=== PATIENT | female | born 1945 | race Caucasian/White ===

== ENCOUNTER → 2017-04-19 | Outpatient (CLI) | payer MEDICARE, OTHER ==
[~2017-04-19] MED LIST: COL625PT PO; DUL20 PO; ESCI20TA38 PO; FERR236T3 PO; LISI5TAB25 PO; PRAM1TAB22 PO; RIV10 PO; RIVA20TA PO; SPIR25TA78 PO
--- NOTE | 2017-04-20 15:39 | RADIOLOGY IMAGING REPORT ---
[place] [facility] [place] NAME: FORTINO LEIGH : [id number] MR: [id number] V: [id number] EXAM DATE: [id number] ORDERING PHYSICIAN: RADHA MAGUIRE TECHNOLOGIST: Melissa Engel PROCEDURE:BILATERAL DIGITAL SCREENING MAMMOGRAM WITH CAD ASSISTED INTERPRETATION AND 3D BREAST TOMOSYNTHESIS. COMPARISON:Prior mammograms dated 03/24/16, 03/11/16, 01/03/15, 11/13/13, 03/24/12 and 12/18/10. INDICATIONS:SCREENING FINDINGS: A small amount of fibroglandular tissue is seen throughout the breasts. The parenchymal pattern has remained stable when allowing for difference in mammographic technique and patient positioning. There is no evidence of malignant appearing mass, malignant appearing calcification or other secondary sign of malignancy in either breast. DIAGNOSTIC CATEGORY 1--NEGATIVE. RECOMMENDATIONS: ROUTINE MAMMOGRAM AND CLINICAL EVALUATION. IMPRESSION: Bi-RADS 1: No significant abnormality is seen. Images were reviewed with R2CAD and 3D breast tomosynthesis. Dictated by: Kelly Ford M.D. on 04/19/2017 at 15:53 Transcribed by: CLAUDIO on 04/19/2017 at 20:09 Approved by: Kelly Ford M.D. on 04/20/2017 at 15:38 [facility]
== END ==
LOC: MAMO 01:53
PROVIDERS: ATTEND Nurse Practitioner Family
DX: Z12.31 Encounter for screening mammogram for malignant neoplasm of breast (principal)
CPT/HCPCS: 77063; 77067

== ENCOUNTER → 2017-08-11 | Outpatient (CLI) | payer MEDICARE, OTHER ==
--- NOTE | 2017-08-11 15:15 | RADIOLOGY IMAGING REPORT ---
FAC[place] [facility] [place]IENT NAME: Young Castrejon : 1945 MR: [id number] V: [id number] EXAM DATE: ORDERING PHYSICIAN: KASSIE SAUNDERS TECHNOLOGIST: Location: [facility] Patient: Young Castrejon : 1945 Visit/Account:[id number] Date of Sevice: 08/11/2017 EXAMINATION: L-SPINE W/O CONTRAST Indication: Low back pain, history of fusion. COMPARISON: None. TECHNIQUE: Axial images were obtained through the lumbar spine without IV contrast administration. C oronal and sagittal reformatted images were obtained from the axial source data. One of the following dose optimization techniques was utilized in the performance of this exam: automated exposure contro l; adjustment of the mA and/or kV according to the patient's size; or use of an iterative reconstruct ion technique. Specific details can be referenced in the facility's radiology CT exam operational po licy. FINDINGS: Alignment: There are postoperative changes with posterior instrumentation fusion hardware at L4-5. Th ere is mild anterolisthesis L4-5, 3 mm. Vertebral bodies: Vertebral bodies and the posterior elements are intact. There is severe disc space narrowing the bony endplate sclerosis at L2-3, with subchondral cystic changes. Remaining vertebral h eights are maintained. Anterior osteophytes are seen at T12-L1, and L1-L2. Posterior elements: Negative. Soft tissues: Negative. Visualized retroperitoneal / abdominal structures: Negative. On a level by level basis findings are as follows: L1-2: Spinal canal and neural foramen are patent. L2-3: Right and left neural foramen are patent. There is mild narrowing of the central canal secondar y to posterior osteophyte. L3-4: Posterior broad-based is protrusion is seen, that causes moderate central canal stenosis. Right and left neural foramen are patent. L4-5: Mild posterior broad-based disc protrusion is seen, without significant central canal stenosis. Right and left neural foramen are patent. L5-S1: Spinal canal and neural foramen are patent. IMPRESSION: 1. Postoperative changes with posterior instrumentation and fusion hardware L4-5. 2. Mild anterolisthesis L4-5. 3. Moderate central canal stenosis L3-4, secondary to posterior broad-based disc protrusion. Report Dictated By: Rodney aPtel at 08/11/2017 3:08 PM Report E-Signed By: Rodney Patel at 08/11/2017 3:13 PM WSN:[id number]
== END ==
LOC: CT 14:15
PROVIDERS: ATTEND Orthopaedic Surgery
DX: M43.16 Spondylolisthesis, lumbar region (principal)
CPT/HCPCS: 72131

== ENCOUNTER → 2017-09-27 | Outpatient (CLI) | payer MEDICARE, OTHER ==
[~2017-09-27] MED LIST changes: -SPIR25TA78 PO; +SPIR25TA80 PO
--- NOTE | 2017-09-27 09:48 | EKG ---
[place] [facility] [place] FORTINO LEIGH : [id number] MR: [id number] V: [id number] EXAM DATE: ORDERING PHYSICIAN: RADHA MAGUIRE TECHNOLOGIST: OLINDA Varela Reason : PRE-OP Blood Pressure : / mmHG Vent. Rate : 071 BPM Atrial Rate : 071 BPM P-R Int : 146 ms QRS Dur : 082 ms QT Int : 388 ms P-R-T Axes : 064 040 037 degrees QTc Int : 421 ms Normal sinus rhythm Nonspecific T wave abnormality Abnormal ECG When compared with ECG of 12-NOV-2015 09:19, Now with lateral T flattening Confirmed by MICHELINE TYSON ([id number]) on 09/27/2017 7:17:02 PM Referred By: ANDREZ Confirmed By:MICHELINE TYSON
== END ==
LOC: RESP 09:12
PROVIDERS: ATTEND Nurse Practitioner Family
DX: R94.31 Abnormal electrocardiogram [ECG] [EKG] (principal)
CPT/HCPCS: 93005

== ENCOUNTER → 2017-11-18 | Outpatient (CLI) | payer MEDICARE, OTHER ==
--- NOTE | 2017-11-18 08:49 | RADIOLOGY IMAGING REPORT ---
FACILITY: [facility] PATIENT NAME: Young Castrejon : 1945 MR: [id number] V: [id number] EXAM DATE: ORDERING PHYSICIAN: [facility] TECHNOLOGIST: Location: [facility] Patient: Young Castrejon : 1945 Visit/Account:[id number] Date of Sevice: 11/18/2017 Exam type: VENOUS DOPP LOW LEFT EXTREMITY History: Left leg swelling Comparison: September 18, 2015. Findings: Left lower extremity veins are imaged including the left common femoral vein, greater saphenous vein, superficial femoral vein, popliteal vein, posterior tibial vein, peroneal vein and anterior tibial v ein revealing no evidence of intraluminal thrombi. The veins were compressible and demonstrated augm entation. Incidentally noted is a 2.8 x 2.8 x 1.1 cm fatty replaced left inguinal lymph node IMPRESSION: 1. No sonographic evidence DVT involving the left lower extremity veins Report Dictated By: Kelly Ford MD at 11/18/2017 8:45 AM Report E-Signed By: Kelly Ford MD at 11/18/2017 8:47 AM WSN:[id number]
== END ==
LOC: US 07:13
DX: R22.42 Localized swelling, mass and lump, left lower limb (principal)

== ENCOUNTER 2017-12-28 11:24 | Emergency (ER) | payer MEDICARE, OTHER ==
--- NOTE | 2017-12-28 11:27 | ER Report ---
History and Physical Time Seen By MD: 11:27 HPI/ROS CHIEF COMPLAINT: Chest pain HISTORY OF PRESENT ILLNESS: 72-year-old female patient presents to emergency room with complaint of chest. Patient states the pain started about 11:00 this morning. She said it lasted for several minutes. She states that as a chest pain resolved but she did have an episode of lightheadedness. Patient states she's not had any shortness of breath, no nausea or vomiting. Patient states she did take some baking soda to help with what she described as heartburn. She states that this resolved a few minutes later. Patient discussed this episode with a friend of hers who felt that she needed to come into the emergency room be evaluated. Patient states that this time she is pain-free. She denies any shortness of breath. She denies any cough, fevers, nausea, vomiting or diarrhea. REVIEW OF SYSTEMS: Respiratory: No cough, no dyspnea. Cardiovascular: As noted above Gastrointestinal: No vomiting, no abdominal pain. Musculoskeletal: No back pain. Allergies: Coded Allergies: cefaclor (Unverified Allergy, Severe, ANAPHYLAXIS, 12/28/17) codeine (Unverified Allergy, Intermediate, NAUSEA/VOMITING, 12/28/17) Home Meds Reported Medications Brian Cit/D3/K/Mag Ox/Stron/Bor (THERACAL D2000 TABLET) 1 Each Tablet, 1 EACH PO DAILY 12/28/17 Cyclobenzaprine Hcl (CYCLOBENZAPRINE HCL) 10 Mg Tablet, 10 PO PRN 12/28/17 Amitriptyline Hcl (AMITRIPTYLINE HCL) 25 Mg Tablet, 25 MG PO QHS, #5 TAB 12/28/17 Gabapentin (GABAPENTIN) 300 Mg Capsule, 300 MG PO BID, CAPSULE 12/28/17 Aspirin (ASPIR 81) 81 Mg Tablet.dr, 81 MG PO QDAY, TAB 12/28/17 Folic Acid (FOLIC ACID) 1 Mg Tablet, 1 MG PO QDAY, TAB 12/28/17 Pramipexole Di-Hcl (MIRAPEX) 1 Mg Tablet, 2 MG PO HS 05/26/14 Escitalopram Oxalate (LEXAPRO) 20 Mg Tablet, 40 MG PO QDAY 05/26/14 Lisinopril (LISINOPRIL) 5 Mg Tablet, 5 MG PO QDAY 08/09/13 Discontinued Reported Medications Colesevelam Hcl (WELCHOL) 625 Mg Tablet, 1250 MG PO TID 05/26/14 Ferrous Gluconate (IRON) 236 Mg Tablet, 236 MG PO BID 05/26/14 Rivaroxaban (XARELTO 10 MG TAB (OR EQUIV)) 10 Mg Tablet, 10 MG PO QDAY 05/26/14 Spironolactone (SPIRONOLACTONE) 25 Mg Tablet, 25 MG PO DAILY 05/26/14 Past Medical/Surgical History Patient has a past medical history of hypertension, hyperlipidemia, back pain. Patient has surgical history of dental implants, left quad detachment surgery, back surgery 2, right total hip, right total knee, appendectomy, left femoral hernia repair. Reviewed Nurses Notes: Yes Hx Smoking: Yes Smoking Status: Current: Every Day Smoker Constitutional Vital Sign - Last 24 Hours 12/28/17 12/28/17 12/28/17 12/28/17 11:24 11:30 11:30 11:54 Temp 97.7 Pulse 101 101 97 Resp 12 16 B/P (MAP) 149/84 149/84 (105) Pulse Ox 97 96 O2 Delivery Room Air Room Air 12/28/17 12/28/17 12/28/17 12/28/17 11:59 12:08 12:29 12:30 Pulse 96 87 Resp 13 9 B/P (MAP) 126/74 (91) 124/69 (87) Pulse Ox 95 94 O2 Delivery Room Air Room Air 12/28/17 12/28/17 12/28/17 12/28/17 12:35 13:00 13:05 13:30 Pulse 89 81 Resp 14 14 B/P (MAP) 110/63 (79) 101/57 (72) Pulse Ox 96 91 O2 Delivery Room Air Room Air 12/28/17 12/28/17 12/28/17 12/28/17 13:35 13:40 14:00 14:10 Pulse 76 76 76 Resp 8 11 6 B/P (MAP) 106/56 (73) Pulse Ox 95 94 96 O2 Delivery Room Air Room Air Room Air 12/28/17 12/28/17 12/28/17 12/28/17 14:15 14:20 14:25 14:30 Pulse 76 76 77 76 Resp 9 15 18 10 B/P (MAP) 112/59 (76) Pulse Ox 95 94 90 97 10/17/18 14:35 Pulse 76 Resp 18 Pulse Ox 95 Physical Exam General Appearance: The patient is alert, has no immediate need for airway protection and no current signs of toxicity. Respiratory: Chest is non tender, lungs are clear to auscultation. Cardiac: regular rate and rhythm Gastrointestinal: Abdomen is soft and non tender, no masses, bowel sounds normal. Musculoskeletal: Neck: Neck is supple and non tender. Extremities have full range of motion and are non tender. Skin: No rashes or lesions. DIFFERENTIAL DIAGNOSIS: After history and physical exam differential diagnosis was considered for chest pain including but not limited to myocardial ischemia, pericarditis pulmonary embolus, chest wall pain, pleural inflammation and pulmonary infectious causes. Medical Decision Making Data Points Result Diagram: 12/28/17 1130 12/28/17 1130 Laboratory Hematology Test 12/28/17 11:30 12/28/17 13:53 Red Blood Count 4.38 M/uL (4.17-5.56) Mean Corpuscular Volume 98.0 fL (80.0-96.0) Mean Corpuscular Hemoglobin 32.6 pg (26.0-33.0) Mean Corpuscular Hemoglobin Concent 33.2 g/dL (32.0-36.0) Red Cell Distribution Width 15.1 % (11.5-14.5) Mean Platelet Volume 7.8 fL (7.2-11.1) Neutrophils (%) (Auto) 55.8 % (39.4-72.5) Lymphocytes (%) (Auto) 31.6 % (17.6-49.6) Monocytes (%) (Auto) 9.7 % (4.1-12.4) Eosinophils (%) (Auto) 2.1 % (0.4-6.7) Basophils (%) (Auto) 0.8 % (0.3-1.4) Nucleated RBC Relative Count (auto) 0.1 /100WBC Neutrophils # (Auto) 4.1 K/uL (2.0-7.4) Lymphocytes # (Auto) 2.3 K/uL (1.3-3.6) Monocytes # (Auto) 0.7 K/uL (0.3-1.0) Eosinophils # (Auto) 0.2 K/uL (0.0-0.5) Basophils # (Auto) 0.1 K/uL (0.0-0.1) Nucleated RBC Absolute Count (auto) 0.01 K/uL Sodium Level 139 mmol/L (137-145) Potassium Level 3.8 mmol/L (3.5-5.0) Chloride Level 103 mmol/L (98-107) Carbon Dioxide Level 26 mmol/L (22-31) Blood Urea Nitrogen 16 mg/dl (7-18) Creatinine 0.80 mg/dl (0.52-1.04) Glomerular Filtration Rate Calc > 60.0 Random Glucose 115 mg/dl (75-110) Calcium Level 9.3 mg/dl (8.4-10.2) Total Bilirubin 0.3 mg/dl (0.2-1.3) Aspartate Amino Transf (AST/SGOT) 30 U/L (0-35) Alanine Aminotransferase (ALT/SGPT) 34 U/L (0-56) Alkaline Phosphatase 128 U/L (0-126) Total Protein 7.6 g/dl (6.3-8.2) Albumin 4.1 g/dl (3.5-5.0) Troponin I < 0.012 ng/ml Chemistry Test 12/28/17 11:30 12/28/17 13:53 White Blood Count 7.4 k/uL (4.5-11.0) Red Blood Count 4.38 M/uL (4.17-5.56) Hemoglobin 14.2 g/dL (12.0-16.0) Hematocrit 42.9 % (34.0-47.0) Mean Corpuscular Volume 98.0 fL (80.0-96.0) Mean Corpuscular Hemoglobin 32.6 pg (26.0-33.0) Mean Corpuscular Hemoglobin Concent 33.2 g/dL (32.0-36.0) Red Cell Distribution Width 15.1 % (11.5-14.5) Platelet Count 239 K/uL (150-450) Mean Platelet Volume 7.8 fL (7.2-11.1) Neutrophils (%) (Auto) 55.8 % (39.4-72.5) Lymphocytes (%) (Auto) 31.6 % (17.6-49.6) Monocytes (%) (Auto) 9.7 % (4.1-12.4) Eosinophils (%) (Auto) 2.1 % (0.4-6.7) Basophils (%) (Auto) 0.8 % (0.3-1.4) Nucleated RBC Relative Count (auto) 0.1 /100WBC Neutrophils # (Auto) 4.1 K/uL (2.0-7.4) Lymphocytes # (Auto) 2.3 K/uL (1.3-3.6) Monocytes # (Auto) 0.7 K/uL (0.3-1.0) Eosinophils # (Auto) 0.2 K/uL (0.0-0.5) Basophils # (Auto) 0.1 K/uL (0.0-0.1) Nucleated RBC Absolute Count (auto) 0.01 K/uL Glomerular Filtration Rate Calc > 60.0 Calcium Level 9.3 mg/dl (8.4-10.2) Total Bilirubin 0.3 mg/dl (0.2-1.3) Aspartate Amino Transf (AST/SGOT) 30 U/L (0-35) Alanine Aminotransferase (ALT/SGPT) 34 U/L (0-56) Alkaline Phosphatase 128 U/L (0-126) Total Protein 7.6 g/dl (6.3-8.2) Albumin 4.1 g/dl (3.5-5.0) Troponin I < 0.012 ng/ml EKG/Imaging EKG Interpretation 12 lead EKG: Rhythm: normal sinus rhythm Maybell: normal QRS: normal ST segments: Nonspecific ST abnormality Imaging CHEST PA AND LAT History: Chest Pain FINDINGS: Comparison studies: Comparison lumbar spine 01/19/2011. No prior chest radiographs. Tubes and Lines: None. Lungs and pleura: Small calcified granuloma seen at the right costophrenic angle. There is very mild bilateral upper lung cephalization. No focal consolidation. Mediastinum: Several right-sided calcified Hilar lymph nodes noted. Otherwise unremarkable. Cardiac silhouette: normal . Osseous structures: On the lateral view there is rather extensive sclerosis of the T10-T11 endplates and [id number] abutment at the T10-11 disc and to a lesser extent at T11-12. This represents a change from the remote 2011 lumbar spine radiographs. IMPRESSION: Subtle upper lung cephalization which could represent very mild fluid overload mild underlying scarring. No focal consolidation. 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 Bone sclerosis presumptively reactive to the disc disease. Evidence of Previous granulomatous disease Report Dictated By: Matt Black MD at 12/28/2017 12:27 PM Report E-Signed By: Matt Black MD at 12/28/2017 12:34 PM ED Course/Re-evaluation ED Course Patient is admitted and examined, history and physical were obtained. Differential diagnoses were considered. On examination lungs are clear, heart is regular, abdomen soft nontender. Patient on areas having any chest pain. A CBC, CMP, troponin, EKG, chest x-ray were done. EKG showed normal sinus rhythm, CBC, CMP were unremarkable. Troponin was negative. Chest x-ray showed no acute cardiopulmonary processes. Due to her age and onset of pain being 11 o'clock I did want to do a repeat troponin. That was done approximately 2:00. That was also negative. I discussed findings with patient. We'll go ahead and discharge her home at this time. She is to continue with her normal diet. She is to increase fluid intake. I would like her to follow-up with primary care provider in the next week. Patient verbalized understanding and agreement with plan. Decision to Disposition Date: Dec 28, 2017 Decision to Disposition Time: 14:34 Depart Departure Latest Vital Signs Vital Signs Date Time Temp Pulse Resp B/P (MAP) Pulse Ox O2 Delivery O2 Flow Rate FiO2 12/28/17 14:35 76 18 95 12/28/17 14:30 112/59 (76) 12/28/17 14:10 Room Air 12/28/17 11:30 97.7 Impression: Primary Impression: Chest pain Condition: Improved Disposition: HOME OR SELF-CARE Referrals: RADHA MAGUIRE (PCP) Patient Instructions: Chest Pain (ED) Additional Instructions: Increase fluid intake. Get plenty of rest. Follow up with your primary care provider in the next 2-3 days. Return to the ER if condition worsens. Continue with your current medications. Problem Qualifiers Primary Impression: Chest pain Chest pain type: other chest pain Qualified Codes: R07.89 - Other chest pain EMILE HERNANDEZ Dec 28, 2017 11:27
[2017-12-28] MEDS ORDERED: ASPI-1471 PO (11:40)
[2017-12-28] MEDS ORDERED: CYCL10TA29 PO (11:40)
[2017-12-28] MEDS ORDERED: FOLI-68 PO (11:40)
[2017-12-28] MEDS ORDERED: CAL1TABL PO (11:40)
[2017-12-28] MEDS ORDERED: GABA-549 PO (11:40)
[2017-12-28] MEDS ORDERED: AMIT-106 PO (11:40)
[2017-12-28] MEDS ORDERED: ASPIRIN 81 MG CHEW PO ONE (11:50)
[2017-12-28 11:55] LABS: PLATELET COUNT, AUTOMATED 239 K/uL (150-450)
--- NOTE | 2017-12-28 11:59 | EKG ---
FACILITY: [facility] - [place] PATIENT NAME: FORTINO LEIGH : [id number] MR: [id number] V: [id number] EXAM DATE: ORDERING PHYSICIAN: EMILE HERNANDEZ TECHNOLOGIST: JANIS Test Reason : CP Blood Pressure : / mmHG Vent. Rate : 099 BPM Atrial Rate : 099 BPM P-R Int : 144 ms QRS Dur : 080 ms QT Int : 346 ms P-R-T Axes : 042 007 004 degrees QTc Int : 444 ms Normal sinus rhythm Cannot rule out Anterior infarct , age undetermined Diffuse, non-specific, T flattening When compared with ECG of 27-SEP-2017 09:30, Nonspecific T wave abnormality now evident in Inferior leads Confirmed by MICHELINE TYSON ([id number]) on 12/28/2017 6:54:54 PM Referred By: ROBBY Confirmed By:MICHELINE TYSON
--- NOTE | 2017-12-28 12:37 | RADIOLOGY IMAGING REPORT ---
FACILITY: [facility] PATIENT NAME: Young Castrejon : 1945 MR: [id number] V: [id number] EXAM DATE: ORDERING PHYSICIAN: EMILE HERNANDEZ TECHNOLOGIST: Location: [facility] [place] Patient: Young Castrejon : 1945 Visit/Account:[id number] Date of Sevice: 12/28/2017 CHEST PA AND LAT History: Chest Pain FINDINGS: Comparison studies: Comparison lumbar spine 01/19/2011. No prior chest radiographs. Tubes and Lines: None. Lungs and pleura: Small calcified granuloma seen at the right costophrenic angle. There is very mi ld bilateral upper lung cephalization. No focal consolidation. Mediastinum: Several right-sided calcified Hilar lymph nodes noted. Otherwise unremarkable. Cardiac silhouette: normal . Osseous structures: On the lateral view there is rather extensive sclerosis of the T10-T11 endplate s and [id number] abutment at the T10-11 disc and to a lesser extent at T11-12. This represents a c hange from the remote 2010 lumbar spine radiographs. IMPRESSION: Subtle upper lung cephalization which could represent very mild fluid overload mild underlying scar ring. No focal consolidation. 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 Bone sclerosis presumptively re active to the disc disease. Evidence of Previous granulomatous disease Report Dictated By: Matt Black MD at 12/28/2017 12:27 PM Report E-Signed By: Matt Black MD at 12/28/2017 12:34 PM WSN:[id number]
[2017-12-28 14:30] VITALS: BP 112/59
== END 2017-12-28 14:42 | disposition home or self-care (01) ==
LOC: ER 11:27
DX: R07.89 Other chest pain (principal)
CPT/HCPCS: 36415; 71046; 84484; 85025; 93005; 99283; A9270; 82040; 82247; 82310; 82374; 82435; 82565; 82947; 84075; 84132; 84155; 84295; 84450; 84460; 84520

== ENCOUNTER → 2018-01-17 | Outpatient (CLI) | payer MEDICARE, OTHER ==
[~2018-01-17] MED LIST changes: +AMIT-106 PO; +ASPI-1471 PO; +CAL1TABL PO; +CYCL10TA29 PO; +FOLI-68 PO; +GABA-549 PO
--- NOTE | 2018-01-17 10:54 | RADIOLOGY IMAGING REPORT ---
FACILITY: [facility] PATIENT NAME: Young Castrejon : 1945 MR: [id number] V: [id number] EXAM DATE: ORDERING PHYSICIAN: SIENA BARRIOS TECHNOLOGIST: Location: [facility] - [place] Patient: Young Castrejon : 1945 Visit/Account:[id number] Date of Sevice: 01/17/2018 LUMBAR SPINE 4 VIEWS COMPARISON: 08/11/2017 CT lumbar spine without contrast. HISTORY: Postoperative lumbar fusion/spondy 15 weeks TECHNIQUE: Lumbar spine radiographs (4 views including AP, lateral, lateral flexion and lateral exte nsion views) FINDINGS: ALIGNMENT: Moderate dextroscoliosis, apex L2-L3. Previously there was a slight leftward curvature. There is a first/borderline second-degree retrolisthesis of about 1.1 cm at L1-2 showing no significa nt change with flexion although this actually improves to about 7 mm with extension. First-degree retrolisthesis of 6 mm at L2-3 showing no change with flexion or extension. First-degree anterolisthesis of 5 mm at L4-5 increases to 9 mm with flexion and extension. Please note that plain film measurements are approximate. VERTEBRAL BODIES: Intact vertebral body heights without fracture or osseous lesion. There are fiv e lumbar vertebral bodies and there are posterior stabilization rods and transpedicular screws at L2, L3 and L4 representing a change from previous. L4-5 hardware has been removed. There is moderate endplate spurring, endplate irregularity and sclerosis at L2-3 which is relatively stable. DISC SPACES: Prosthetic disc or fusion device at L2-3. Moderate L1-2, advanced L2-3 and mild L4-5 a nd L5-S1 disc height loss. SACROILIAC JOINTS: Unremarkable. OTHER: Negative. IMPRESSION: 1. Interval lumbar spine hardware revision. There has been removal of L4-5 posterior spinal fusion hardware. There is new posterior spinal fusion hardware between L2 and L4 and there is new hardware in the L2-3 disc space. No hardware-related complications are evident. 2. Subluxations at L1-2, L2-3 and L4-5 as described, with motion suggesting instability at L1-2 and L4-5. Plain film measurements are approximate. 3. Moderate lumbar spine degenerative changes. 4. Moderate dextroscoliosis which is new from the preoperative study. Report Dictated By: Ruddy Forrest at 01/17/2018 10:40 AM Report E-Signed By: Ruddy Forrest at 01/17/2018 10:50 AM JULIANN:FLOR
== END ==
LOC: RAD 09:58
DX: Z48.811 Encounter for surgical aftercare following surgery on the nervous system (principal)
CPT/HCPCS: 72120

== ENCOUNTER → 2018-06-09 | Outpatient (CLI) | payer MEDICARE, OTHER ==
[~2018-06-09] MED LIST changes: +BUPR-126 PO; +PSYL1000 MC
--- NOTE | 2018-06-09 12:24 | RADIOLOGY IMAGING REPORT ---
FACILITY: [facility] - [place] PATIENT NAME: FORTINO LEIGH : [id number] MR: [id number] V: [id number] EXAM DATE: [id number] ORDERING PHYSICIAN: RADHA MAGUIRE TECHNOLOGIST: Fannie Chapman PROCEDURE:BILATERAL DIGITAL SCREENING MAMMOGRAM WITH CAD ASSISTED INTERPRETATION & 3D TOMOSYNTHESIS COMPARISON:Prior mammograms 04/19/2017, prior to 12/18/2010. INDICATIONS:SCREENING FINDINGS: Breast parenchyma density is predominantly fatty. There are no mammographic findings concerning for malignancy. No significant interval change. DIAGNOSTIC CATEGORY 1--NEGATIVE. RECOMMENDATIONS: ROUTINE MAMMOGRAM AND CLINICAL EVALUATION IN 1 YR. IMPRESSION: BIRADS 1: Negative. Dictated by: Rodney Carroll on 06/09/2018 at 11:18 Transcribed by: BLACK on 06/09/2018 at 11:32 Approved by: Rodney Carroll on 06/09/2018 at 12:23 [facility]
== END ==
LOC: MAMO 02:02
PROVIDERS: ATTEND Nurse Practitioner Family
DX: Z12.31 Encounter for screening mammogram for malignant neoplasm of breast (principal)
CPT/HCPCS: 77063; 77067

== ENCOUNTER 2018-10-20 10:51 | Emergency (ER) | payer MEDICARE, OTHER ==
[2018-10-20] MEDS ORDERED: EZET10TA41 PO (11:01)
--- NOTE | 2018-10-20 11:01 | ER Report ---
History and Physical Time Seen By MD: 10:57 HPI/ROS CHIEF COMPLAINT: Left Hip pain HISTORY OF PRESENT ILLNESS: Pt is a 73 yo F c/o left hip pain that started this morning after doing PT. She was abducting her hip when she heard a pop/grinding sound that now is causing pain in the medial groin. The pain is worse with movement but only a 4/10. Hasn't tried anything for the pain. Is non-weight bearing on the left, needed a walker to get into ED room today. History of right hip arthroplasty in 2015, left knee arthroplasty in 2016, left quadraceps surgery in 2016 and L4-L5 fusion in 2017. REVIEW OF SYSTEMS: Respiratory: no cough, no dyspnea Cardiovascular: No chest pain, no palpitations. Gastrointestinal: no abdominal pain Musculoskeletal: No back pain, left hip pain, left groin pain, non weight bearing Allergies: Coded Allergies: cefaclor (Unverified Allergy, Severe, ANAPHYLAXIS, 10/20/18) codeine (Unverified Allergy, Intermediate, NAUSEA/VOMITING, 10/20/18) Home Meds Active Scripts Oxycodone Hcl/Acetaminophen (PERCOCET 5-325 MG TABLET) 1 Each Tablet, 1 EACH PO Q4-6H PRN for PAIN, #6 TAB Prov:EMILE HERNANDEZ [employer] 10/20/18 Reported Medications Ezetimibe (ZETIA) 10 Mg Tablet, 10 MG PO QDAY, TAB 10/20/18 Psyllium Husk (PSYLLIUM HUSK) 1,000 Gm Powder, 1450 MG MC 02/24/18 Bupropion Hcl (WELLBUTRIN SR) 150 Mg Tablet.er, 150 MG PO QDAY, TAB 02/24/18 Spironolactone (SPIRONOLACTONE) 25 Mg Tablet, 25 MG PO PRN, TAB 02/24/18 Brian Cit/D3/K/Mag Ox/Stron/Bor (THERACAL D2000 TABLET) 1 Each Tablet, 1 EACH PO DAILY 12/28/17 Folic Acid (FOLIC ACID) 1 Mg Tablet, 1 MG PO QDAY, TAB 12/28/17 Escitalopram Oxalate (LEXAPRO) 20 Mg Tablet, 20 MG PO QDAY 05/26/14 Lisinopril (LISINOPRIL) 5 Mg Tablet, 5 MG PO QDAY 08/09/13 Discontinued Reported Medications Cyclobenzaprine Hcl (CYCLOBENZAPRINE HCL) 10 Mg Tablet, 10 MG PO BID, #9 TAB 02/24/18 Past Medical/Surgical History HTN, Hypercholesterolemia, back pain, denal implatations, glasses, hernia repair, appendectomy, left knee replacement, right hip replacement, L4-5 fusion, left quad detachment surgery Reviewed Nurses Notes: Yes Hx Smoking: Yes Smoking Status: Current: Every Day Smoker Hx Substance Use Disorder: No Hx Alcohol Use: No Constitutional Vital Sign - Last 24 Hours 10/20/18 10/20/18 10/20/18 10/20/18 11:00 11:03 11:30 12:00 Temp 97.2 Pulse 74 84 65 Resp 20 B/P (MAP) 133/66 (88) 148/72 106/58 (74) Pulse Ox 94 93 94 92 O2 Delivery Room Air Physical Exam General Appearance: The patient is alert, has no immediate need for airway protection and no current signs of toxicity. Eyes: Pupils equal and round no injection, EOMI Respiratory: Chest is non tender, lungs are clear to auscultation. Cardiac: regular rate and rhythm Gastrointestinal: Abdomen is soft and non tender, no masses, bowel sounds normal. Musculoskeletal: Neck: Neck is supple and non tender FROM in right lower extremity, limited ROM in left hip to about 10 degrees in any direction, non weight-bearing, no TTP of the ASIS or greater trochanter, FROM in spine with acception of L4-L5 fusion Skin: No rashes or lesions. DIFFERENTIAL DIAGNOSIS: After history and physical exam differential diagnosis was considered for dislocation, nerve impingment, fracture, strain, muscle tear Medical Decision Making EKG/Imaging Imaging Exam type: HIP LEFT History: left hip pian Comparison: Right hip November 13, 2013. Findings: Two views were submitted There is a right hip arthroplasty in place. Postsurgical changes lower lumbar spine are incompletely imaged. There is mild narrowing of the left hip joint slightly increased when compared the prior study. There is no evidence of acute fracture or dislocation. There are mild generative changes at the pubic symphysis. IMPRESSION: 1. Slight narrowing of the left hip joint increased when compared to the prior study from November 13, 2013 Report Dictated By: Kelly Ford MD at 10/20/2018 12:11 PM Report E-Signed By: Kelly Ford MD at 10/20/2018 12:13 PM WSN:FLOR Exam type: L-SPINE >4 VIEWS History: left hip pian radiating into lower back Comparison: January 17, 2018. Findings: Five views of the lumbar spine were submitted. There is a dextroconvex scoliosis of the lumbar spine There are five lumbar type vertebral bodies. There are postsurgical changes from posterior lumbar interbody fusion at L2-3 and four. Intervertebral disc spacers present at L3-4 grade 1 anterior listhesis of L4 with respect L5 appears similar to the prior study. Previously noted retrolisthesis of L1 with respect L2 appears less prominent. There is however increasing moderate to severe disc space narrowing at L1-2 with gas noted within the disc space and sclerosis of the adjacent endplates. IMPRESSION: 1. Postoperative changes of the lumbar spine from L2 to L4 as described above. Extensive multilevel spondylotic changes as described Report Dictated By: Kelly Ford MD at 10/20/2018 12:07 PM Report E-Signed By: Kelly Ford MD at 10/20/2018 12:11 PM WSN:FLOR ED Course/Re-evaluation ED Course Patient was admitted when examined, history and physical were obtained. Differential diagnoses were considered. On examination lungs were clear, heart is regular, abdomen soft nontender. Patient did have tenderness over the lateral aspect of the left hip. X-rays done of the left hip as well as lumbar spine. There are no acute findings noted. Discussed findings with the patient. We will go ahead and discharge her home with a limited supply of pain medication. Patient is follow-up with her orthopedist in the next week. I discussed concerns about possible injury to the muscle of the hip and will need follow-up with orthopedics patient heals properly. Patient is return to emergency room if condition worsens. Patient verbalized understanding and agreement with plan. Decision to Disposition Date: Oct 20, 2018 Decision to Disposition Time: 12:29 Depart Departure Latest Vital Signs Vital Signs Date Time Temp Pulse Resp B/P (MAP) Pulse Ox O2 Delivery O2 Flow Rate FiO2 10/20/18 12:00 65 106/58 (74) 92 10/20/18 11:03 97.2 20 Room Air Impression: Primary Impression: Left hip pain Condition: Improved Disposition: HOME OR SELF-CARE New Scripts Oxycodone Hcl/Acetaminophen (PERCOCET 5-325 MG TABLET) 1 Each Tablet 1 EACH PO Q4-6H PRN for PAIN, #6 TAB Prov: EMILE HERNANDZE 10/20/18 Patient Instructions: Hip Pain (ED) Additional Instructions: Rest, ice and use walker until able to follow up with orthopedics next week. Rx for Percocet given PRN for pain. Do not drive or operate heavy machinery when taking Narcotics. Return to ED if pain suddenly worsens. EMILE HERNANDEZ Oct 20, 2018 11:01
[2018-10-20 12:00] VITALS: BP 106/58
--- NOTE | 2018-10-20 12:20 | RADIOLOGY IMAGING REPORT ---
[place] [facility] [place] Young Castrejon : 1945 MR: [id number] V: [id number] EXAM DATE: ORDERING PHYSICIAN: EMILE HERNANDEZ TECHNOLOGIST: Location: [facility] [place] Patient: Young Castrejon : 1945 Visit/Account:[id number] Date of Sevice: 10/20/2018 Exam type: L-SPINE >4 VIEWS History: left hip pian radiating into lower back Comparison: January 17, 2018. Findings: Five views of the lumbar spine were submitted. There is a dextroconvex scoliosis of the lumbar spine There are five lumbar type vertebral bodies. There are postsurgical changes from posterior lumbar in terbody fusion at L2-3 and four. Intervertebral disc spacers present at L3-4 grade 1 anterior listhe sis of L4 with respect L5 appears similar to the prior study. Previously noted retrolisthesis of L1 with respect L2 appears less prominent. There is however increasing moderate to severe disc space na rrowing at L1-2 with gas noted within the disc space and sclerosis of the adjacent endplates. IMPRESSION: 1. Postoperative changes of the lumbar spine from L2 to L4 as described above. Extensive multilevel spondylotic changes as described Report Dictated By: Kelly Ford MD at 10/20/2018 12:07 PM Report E-Signed By: Kelly Ford MD at 10/20/2018 12:11 PM WSN:[email or web address]
--- NOTE | 2018-10-20 12:20 | RADIOLOGY IMAGING REPORT ---
FACILITY: [facility] PATIENT NAME: Young Castrejon : 1945 MR: [id number] V: [id number] EXAM DATE: ORDERING PHYSICIAN: EMILE HERNANDEZ TECHNOLOGIST: Location: [facility] - [place] Patient: Young Castrejon : 1945 Visit/Account:[id number] Date of Sevice: 10/20/2018 Exam type: HIP LEFT History: left hip pian Comparison: Right hip November 13, 2013. Findings: Two views were submitted There is a right hip arthroplasty in place. Postsurgical changes lower lumbar spine are incompletely imaged. There is mild narrowing of the left hip joint slightly increased when compared the prior st udy. There is no evidence of acute fracture or dislocation. There are mild generative changes at th e pubic symphysis. IMPRESSION: 1. Slight narrowing of the left hip joint increased when compared to the prior study from November 13, 2013 Report Dictated By: Kelly Ford MD at 10/20/2018 12:11 PM Report E-Signed By: Kelly Ford MD at 10/20/2018 12:13 PM WSN:[email or web address]
[2018-10-20] MEDS ORDERED: OXYC-865 PO (12:35)
== END 2018-10-20 12:51 | disposition home or self-care (01) ==
LOC: ER 11:05
DX: M25.552 Pain in left hip (principal)
CPT/HCPCS: 72120; 99284